=== PATIENT | female | born 1960 ===

== ENCOUNTER 2019-09-19 09:49 | Inpatient (IN) | payer OTHER ==
[~2019-09-19] VITALS: Ht 157.5 cm; Wt 68.9 kg
[2019-09-19 13:52] VITALS: BP 108/68
[2019-09-19 14:00] VITALS: BP 108/68
[2019-09-19] MEDS ORDERED: MAGNESIUM HYDROXIDE SUSPENSION 30 ML UDCUP PO PRN (14:00)
[2019-09-19] MEDS ORDERED: ACETAMINOPHEN 500 MG TABLET PO PRN (14:00)
[2019-09-19] MEDS ORDERED: ONDANSETRON HCL 4 MG TABLET PO PRN (14:00)
[2019-09-19] MEDS ORDERED: INFLUENZA VIRUS VACCINE QVS 2019-20 (3YR+)/PF 60 MCG/0.5 ML SYRINGE IM ONE (15:15)
[2019-09-19 16:47] VITALS: BP 124/50
[2019-09-19 17:25] LABS: GLUCOMETER DEV NAME(LOC) 2WR.2; GLUCOSE,POINT OF CARE 107 MG/DL (70-110)
[2019-09-19] MEDS: SENNA 187 MG TABLET PO SCH (20:36)
[2019-09-19] MEDS: DOCUSATE SODIUM 100 MG CAPSULE PO SCH (20:36)
[2019-09-19] MEDS: LevETIRAcetam 500 MG TABLET PO SCH (20:37)
[2019-09-19] MEDS: DEXAMETHASONE 2 MG TABLET PO SCH (20:37)
[2019-09-19] MEDS: BACITRACIN 28.4 GM OINTMENT TP SCH (20:37)
[2019-09-20] VITALS: BP 139/79
[2019-09-20 00:42] VITALS: BP 102/64
[2019-09-20 06:38] LABS: GLUCOMETER DEV NAME(LOC) 2WR.1B; GLUCOSE,POINT OF CARE 103 MG/DL (70-110)
[2019-09-20 08:45] LABS: BASOPHILS % (AUTO) 0.2 % (0.0-2.0); EOSINOPHILS % (AUTO) 0.4 % (1.0-6.0); HEMOGLOBIN 12.8 g/dL (12.0-16.0); LYMPHOCYTES % (AUTO) 31.6 % (22.0-44.0); MEAN CORPUSCULAR HEMOGLOBIN 30.8 pg (26.0-34.0); MEAN CORPUSCULAR HGB CONC 33.6 G/dL (31.0-37.0); MEAN CORPUSCULAR VOLUME 92 fL (80-100); MONOCYTES # (AUTO) 0.3 K/uL (0.1-1.0); MONOCYTES % (AUTO) 5.4 % (2.0-9.0); NEUTROPHILS # (AUTO) 3.9 K/uL (1.8-7.7); NEUTROPHILS % (AUTO) 62.4 % (40.0-70.0); PLATELET COUNT (AUTO) 320 K/uL (150-450); RED BLOOD CELL COUNT(AUTO) 4.14 MIL/uL (4.00-5.20); RED CELL DISTRIBUTION WIDTH 14.5 % (11.5-14.5)
[2019-09-20 09:00] VITALS: BP 126/72
[2019-09-20 09:03] LABS: ALANINE AMINOTRANSFERASE 23 U/L (12-78); ALBUMIN 2.9 g/dL (3.4-5.0); ALKALINE PHOSPHATASE 76 U/L (46-116); ANION GAP 9 mmol/L (8-16); ASPARTATE AMINOTRANSFERASE 13 U/L (15-37); BILIRUBIN,TOTAL 0.5 mg/dL (0.1-1.0); CALCIUM, TOTAL 8.4 mg/dL (8.8-10.5); CARBON DIOXIDE 27 mmol/L (22-29); CHLORIDE 103 mmol/L (98-107); CREATININE 0.64 mg/dL (0.60-1.30); GLOMERULAR FILTR. RATE CALC > 60 mL/min (>60); GLUCOSE,RANDOM 97 mg/dL (70-110); POTASSIUM 3.2 mmol/L (3.5-5.1); SODIUM SERUM 139 mmol/L (136-145); TOTAL PROTEIN, SERUM 6.4 g/dL (6.4-8.2); UREA NITROGEN, BLOOD 22 mg/dL (7-18)
[2019-09-20] MEDS: DOCUSATE SODIUM 100 MG CAPSULE PO SCH ×2 (09:56→20:36)
[2019-09-20] MEDS: DEXAMETHASONE 2 MG TABLET PO SCH ×2 (09:56→20:36)
[2019-09-20] MEDS: LevETIRAcetam 500 MG TABLET PO SCH ×2 (09:56→20:36)
[2019-09-20] MEDS: BACITRACIN 28.4 GM OINTMENT TP SCH ×2 (09:57→20:36)
[2019-09-20] MEDS: LETROZOLE 2.5 MG TABLET PO SCH (09:57)
[2019-09-20] MEDS ORDERED: POTASSIUM CHLORIDE 10 MEQ ER TABLET PO ONE ×2 (13:30→22:00)
[2019-09-20] MEDS ORDERED: DEXTROSE 50%-WATER 25 GM/50 ML SYRINGE IVP PRN (14:00)
[2019-09-20] MEDS ORDERED: INSULIN LISPRO 100 UNITS/ML SQ PRN (14:00)
[2019-09-20 14:17] VITALS: BP 126/72
[2019-09-20 17:01] VITALS: BP 119/72
[2019-09-20] MEDS: SENNA 187 MG TABLET PO SCH (20:36)
[2019-09-20 20:38] LABS: GLUCOMETER DEV NAME(LOC) 2WR.2; GLUCOSE,POINT OF CARE 116 MG/DL (70-110)
[2019-09-21 00:15] VITALS: BP 116/71
[2019-09-21 06:39] LABS: GLUCOMETER DEV NAME(LOC) 2WR.2; GLUCOSE,POINT OF CARE 115 MG/DL (70-110)
[2019-09-21 08:00] VITALS: BP 105/63
[2019-09-21] MEDS: DOCUSATE SODIUM 100 MG CAPSULE PO SCH ×2 (08:10→21:48)
[2019-09-21] MEDS: DEXAMETHASONE 1 MG TABLET PO SCH ×2 (08:10→21:48)
[2019-09-21] MEDS: LevETIRAcetam 500 MG TABLET PO SCH ×2 (08:10→21:47)
[2019-09-21] MEDS: LETROZOLE 2.5 MG TABLET PO SCH (08:10)
[2019-09-21] MEDS: BACITRACIN 28.4 GM OINTMENT TP SCH ×2 (08:12→21:49)
[2019-09-21 09:16] VITALS: BP 152/88
[2019-09-21 13:27] VITALS: BP 114/69
[2019-09-21 16:31] VITALS: BP 147/82
[2019-09-21 17:32] LABS: GLUCOMETER DEV NAME(LOC) 2WR.2; GLUCOSE,POINT OF CARE 100 MG/DL (70-110)
[2019-09-21] MEDS: SENNA 187 MG TABLET PO SCH (21:48)
[2019-09-22 03:15] VITALS: BP 125/72
[2019-09-22 06:30] LABS: GLUCOMETER DEV NAME(LOC) 2WR.1B; GLUCOSE,POINT OF CARE 86 MG/DL (70-110)
[2019-09-22 07:00] VITALS: BP 122/65
[2019-09-22] MEDS: BACITRACIN 28.4 GM OINTMENT TP SCH (09:00)
[2019-09-22] MEDS: LETROZOLE 2.5 MG TABLET PO SCH (09:00)
[2019-09-22] MEDS: DEXAMETHASONE 1 MG TABLET PO SCH (09:01)
[2019-09-22] MEDS: LevETIRAcetam 500 MG TABLET PO SCH (09:01)
[2019-09-22] MEDS: DOCUSATE SODIUM 100 MG CAPSULE PO SCH (09:01)
[2019-09-22 15:21] VITALS: BP 111/65
[2019-09-23 00:47] LABS: GLUCOMETER DEV NAME(LOC) 2WR.1B; GLUCOSE,POINT OF CARE 87 MG/DL (70-110)
[2019-09-23] MEDS ORDERED: DEXAMETHASONE 1 MG TABLET PO SCH (09:00)
[2019-09-25] MEDS ORDERED: DEXAMETHASONE 1 MG TABLET PO SCH (09:00)
== END 2019-09-22 20:00 | disposition short-term general hospital (02) | DRG 55 ==
LOC: 2WR 09:49
PROVIDERS: ADMIT Physical Medicine & Rehabilitation; ATTEND Physical Medicine & Rehabilitation
DX: C79.31 Secondary malignant neoplasm of brain (principal); C50.919 Malignant neoplasm of unspecified site of unspecified female breast; E87.6 Hypokalemia; K59.00 Constipation, unspecified; R73.9 Hyperglycemia, unspecified; Z79.899 Other long term (current) drug therapy; Z82.49 Family history of ischemic heart disease and other diseases of the circulatory system; Z83.3 Family history of diabetes mellitus; Z85.3 Personal history of malignant neoplasm of breast; Z90.11 Acquired absence of right breast and nipple; Z92.21 Personal history of antineoplastic chemotherapy; Z92.3 Personal history of irradiation
CPT/HCPCS: 84132; 87070; 87081; 87205; 92507; 92523; 97110; 97116; 97163; 97166; 97530; 97535; J8540; Q0162

== ENCOUNTER 2019-09-28 17:06 | Inpatient (IN) | payer OTHER ==
[~2019-09-28] VITALS: Ht 157.5 cm; Wt 61.7 kg
[2019-09-28] MEDS ORDERED: MELATONIN 3 MG TABLET PO PRN (19:45)
[2019-09-28 19:56] VITALS: BP 123/72
[2019-09-28] MEDS: SENNA 187 MG TABLET PO SCH (20:45)
[2019-09-28] MEDS: DOCUSATE SODIUM 100 MG CAPSULE PO SCH (20:45)
[2019-09-28] MEDS: LevETIRAcetam 500 MG TABLET PO SCH (20:45)
[2019-09-28] MEDS ORDERED: INFLUENZA VIRUS VACCINE QVS 2019-20 (3YR+)/PF 60 MCG/0.5 ML SYRINGE IM ONE (20:45)
[2019-09-29 00:19] VITALS: BP 118/65
[2019-09-29] MEDS: ACETAMINOPHEN 325 MG TABLET PO PRN ×2 (06:08→21:34)
[2019-09-29 07:08] VITALS: BP 119/78
[2019-09-29] MEDS: DOCUSATE SODIUM 100 MG CAPSULE PO SCH ×2 (08:14→20:53)
[2019-09-29] MEDS: LevETIRAcetam 500 MG TABLET PO SCH ×2 (08:14→20:53)
[2019-09-29] MEDS: LETROZOLE 2.5 MG TABLET PO SCH (08:14)
[2019-09-29 08:40] LABS: BASOPHILS % (AUTO) 0.6 % (0.0-2.0); EOSINOPHILS % (AUTO) 2.7 % (1.0-6.0); HEMATOCRIT 37.3 % (36-46); HEMOGLOBIN 12.4 g/dL (12.0-16.0); LYMPHOCYTES # (AUTO) 1.4 K/uL (1.0-4.8); LYMPHOCYTES % (AUTO) 28.2 % (22.0-44.0); MEAN CORPUSCULAR HEMOGLOBIN 30.7 pg (26.0-34.0); MEAN CORPUSCULAR HGB CONC 33.2 G/dL (31.0-37.0); MEAN CORPUSCULAR VOLUME 93 fL (80-100); MONOCYTES # (AUTO) 0.4 K/uL (0.1-1.0); NEUTROPHILS % (AUTO) 60.5 % (40.0-70.0); PLATELET COUNT (AUTO) 266 K/uL (150-450); RED BLOOD CELL COUNT(AUTO) 4.04 MIL/uL (4.00-5.20); RED CELL DISTRIBUTION WIDTH 14.9 % (11.5-14.5)
[2019-09-29 08:58] LABS: ALANINE AMINOTRANSFERASE 9 U/L (12-78); ALBUMIN 2.7 g/dL (3.4-5.0); ALKALINE PHOSPHATASE 77 U/L (46-116); ANION GAP 7 mmol/L (8-16); ASPARTATE AMINOTRANSFERASE 10 U/L (15-37); BILIRUBIN,TOTAL 0.2 mg/dL (0.1-1.0); CALCIUM, TOTAL 8.8 mg/dL (8.8-10.5); CARBON DIOXIDE 28 mmol/L (22-29); CHLORIDE 106 mmol/L (98-107); CREATININE 0.73 mg/dL (0.60-1.30); GLOMERULAR FILTR. RATE CALC > 60 mL/min (>60); GLUCOSE,RANDOM 107 mg/dL (70-110); POTASSIUM 3.6 mmol/L (3.5-5.1); SODIUM SERUM 141 mmol/L (136-145); TOTAL PROTEIN, SERUM 6.6 g/dL (6.4-8.2); UREA NITROGEN, BLOOD 19 mg/dL (7-18)
[2019-09-29] MEDS: ONDANSETRON HCL 4 MG TABLET PO PRN ×2 (10:02→16:36)
[2019-09-29 12:30] VITALS: BP 133/83
[2019-09-29 15:10] VITALS: BP 122/79
[2019-09-29] MEDS: SENNA 187 MG TABLET PO SCH (20:53)
[2019-09-30 06:00] VITALS: BP 122/73
[2019-09-30 08:30] VITALS: BP 110/59
[2019-09-30] MEDS: DOCUSATE SODIUM 100 MG CAPSULE PO SCH ×2 (08:49→20:58)
[2019-09-30] MEDS: LETROZOLE 2.5 MG TABLET PO SCH (08:50)
[2019-09-30] MEDS: LevETIRAcetam 500 MG TABLET PO SCH ×2 (08:50→20:58)
[2019-09-30] MEDS: ACETAMINOPHEN 325 MG TABLET PO PRN ×2 (08:51→21:38)
[2019-09-30] MEDS ORDERED: MECLIZINE HCL 25 MG TABLET PO PRN (12:00)
[2019-09-30] MEDS: ONDANSETRON HCL 4 MG TABLET PO PRN (12:11)
[2019-09-30 16:18] VITALS: BP 109/61
[2019-09-30] MEDS: SENNA 187 MG TABLET PO SCH (20:58)
[2019-10-01 06:30] VITALS: BP 109/60
[2019-10-01 08:14] VITALS: BP 110/67
[2019-10-01] MEDS: LETROZOLE 2.5 MG TABLET PO SCH (08:39)
[2019-10-01] MEDS: FAMOTIDINE 20 MG TABLET PO SCH (08:39)
[2019-10-01] MEDS: LevETIRAcetam 500 MG TABLET PO SCH ×2 (08:39→20:59)
[2019-10-01] MEDS: DOCUSATE SODIUM 100 MG CAPSULE PO SCH ×2 (08:39→21:02)
[2019-10-01 16:44] VITALS: BP 109/52
[2019-10-01] MEDS: ACETAMINOPHEN 325 MG TABLET PO PRN (21:02)
[2019-10-01] MEDS: SENNA 187 MG TABLET PO SCH (21:04)
[2019-10-02 03:03] VITALS: BP 117/54
[2019-10-02] MEDS: ACETAMINOPHEN 325 MG TABLET PO PRN ×3 (03:03→20:42)
[2019-10-02 08:40] VITALS: BP 119/56
[2019-10-02] MEDS: MEGESTROL ACETATE 400 MG/10 ML SUSPENSION UDCUP PO SCH (08:49)
[2019-10-02] MEDS: LETROZOLE 2.5 MG TABLET PO SCH (08:49)
[2019-10-02] MEDS: DOCUSATE SODIUM 100 MG CAPSULE PO SCH ×2 (08:49→20:43)
[2019-10-02] MEDS: FAMOTIDINE 20 MG TABLET PO SCH (08:49)
[2019-10-02] MEDS: LevETIRAcetam 500 MG TABLET PO SCH ×2 (08:49→20:43)
[2019-10-02 16:59] VITALS: BP 126/68
[2019-10-02] MEDS: SENNA 187 MG TABLET PO SCH (20:43)
[2019-10-03 02:00] VITALS: BP 104/60
[2019-10-03] MEDS ORDERED: LEVE500T53 PO (07:03)
[2019-10-03] MEDS ORDERED: DOCU-275 PO (07:03)
[2019-10-03] MEDS ORDERED: MEGE400O4 PO (07:03)
[2019-10-03] MEDS ORDERED: LETR2.5 PO (07:03)
[2019-10-03] MEDS ORDERED: FAMO20 PO (07:07)
[2019-10-03] MEDS ORDERED: SENN8.6T90 PO (07:07)
[2019-10-03] MEDS: LETROZOLE 2.5 MG TABLET PO SCH (07:18)
[2019-10-03] MEDS: MEGESTROL ACETATE 400 MG/10 ML SUSPENSION UDCUP PO SCH (07:18)
[2019-10-03] MEDS: FAMOTIDINE 20 MG TABLET PO SCH (07:19)
[2019-10-03] MEDS: DOCUSATE SODIUM 100 MG CAPSULE PO SCH ×2 (07:19→21:00)
[2019-10-03] MEDS: LevETIRAcetam 500 MG TABLET PO SCH ×2 (07:19→21:00)
[2019-10-03 08:13] VITALS: BP 127/73
[2019-10-03 15:34] VITALS: BP 107/59
[2019-10-03] MEDS: SENNA 187 MG TABLET PO SCH (21:00)
[2019-10-03] MEDS: ACETAMINOPHEN 325 MG TABLET PO PRN (22:13)
[2019-10-04 00:44] VITALS: BP 114/63
[2019-10-04 08:00] VITALS: BP 120/62
[2019-10-04] MEDS: DOCUSATE SODIUM 100 MG CAPSULE PO SCH ×2 (10:02→20:54)
[2019-10-04] MEDS: LevETIRAcetam 500 MG TABLET PO SCH ×2 (10:02→20:53)
[2019-10-04] MEDS: FAMOTIDINE 20 MG TABLET PO SCH (10:02)
[2019-10-04] MEDS: LETROZOLE 2.5 MG TABLET PO SCH (10:02)
[2019-10-04] MEDS: MEGESTROL ACETATE 400 MG/10 ML SUSPENSION UDCUP PO SCH (10:02)
[2019-10-04 19:55] VITALS: BP 91/59
[2019-10-04] MEDS: SENNA 187 MG TABLET PO SCH (20:54)
[2019-10-05 00:32] VITALS: BP 115/71
[2019-10-05 07:10] VITALS: BP 127/58
[2019-10-05] MEDS: FAMOTIDINE 20 MG TABLET PO SCH (08:19)
[2019-10-05] MEDS: LETROZOLE 2.5 MG TABLET PO SCH (08:19)
[2019-10-05] MEDS: MEGESTROL ACETATE 400 MG/10 ML SUSPENSION UDCUP PO SCH (08:20)
[2019-10-05] MEDS: DOCUSATE SODIUM 100 MG CAPSULE PO SCH ×2 (08:20→20:51)
[2019-10-05] MEDS: LevETIRAcetam 500 MG TABLET PO SCH ×2 (08:20→20:51)
[2019-10-05] MEDS: ACETAMINOPHEN 325 MG TABLET PO PRN (08:43)
[2019-10-05 15:26] VITALS: BP 101/58
[2019-10-05] MEDS: SENNA 187 MG TABLET PO SCH (20:51)
[2019-10-06 00:16] VITALS: BP 111/64
[2019-10-06 07:30] VITALS: BP 136/70
[2019-10-06] MEDS: MEGESTROL ACETATE 400 MG/10 ML SUSPENSION UDCUP PO SCH (09:10)
[2019-10-06] MEDS: LevETIRAcetam 500 MG TABLET PO SCH (09:10)
[2019-10-06] MEDS: DOCUSATE SODIUM 100 MG CAPSULE PO SCH (09:10)
[2019-10-06] MEDS: FAMOTIDINE 20 MG TABLET PO SCH (09:11)
[2019-10-06] MEDS: LETROZOLE 2.5 MG TABLET PO SCH (09:11)
[2019-10-06] MEDS ORDERED: MECL-111 PO (12:55)
[2019-10-06] MEDS ORDERED: ONDA-104 PO (12:56)
== END 2019-10-06 13:20 | disposition home health service (06) | DRG 55 ==
LOC: 2WR 17:06
PROVIDERS: ADMIT Physical Medicine & Rehabilitation; ATTEND Physical Medicine & Rehabilitation
DX: C79.31 Secondary malignant neoplasm of brain (principal); C50.919 Malignant neoplasm of unspecified site of unspecified female breast; G47.00 Insomnia, unspecified; Z79.899 Other long term (current) drug therapy; Z92.21 Personal history of antineoplastic chemotherapy; Z98.2 Presence of cerebrospinal fluid drainage device; Z80.49 Family history of malignant neoplasm of other genital organs; Z82.49 Family history of ischemic heart disease and other diseases of the circulatory system; Z83.3 Family history of diabetes mellitus; Z28.21 Immunization not carried out because of patient refusal
CPT/HCPCS: 70250; 70360; 74019; 87081; 92507; 92508; 92523; 93970; 97110; 97112; 97116; 97150; 97163; 97166; 97530; 97535; 99366; G0238; Q0162